=== PATIENT | male | born 1980 | race Caucasian/White ===

== ENCOUNTER 2016-10-24 00:38 | Emergency (ER) | payer OTHER ==
[~2016-10-24] VITALS: Ht 172.7 cm; Wt 96.7 kg
[~2016-10-24 00:38] MED LIST: BACT800T5 PO; CEPH500C3 PO
[2016-10-24 00:44] VITALS: BP 162/114; PULSE 105; RESP 12; TEMP 98.4; O2SAT 95
[2016-10-24 01:20] VITALS: BP 163/101; PULSE 88; RESP 16; O2SAT 98
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
[2016-10-24 02:05] LABS: BLOOD, URINE TRACE (NEG); GLUCOSE,URINE NEG (NEG); KETONE, URINE NEG (NEG); NITRITE,URINE NEG (NEG); PH, URINE 5.5 (5.0-8.5)
[2016-10-24 02:12] LABS: RBC, URINE 0-3 /hpf (0-3); SQUAMOUS EPITHELIAL CELL URINE 0-5 /hpf (0-5); URINE COLOR YELLOW (YELLW/STRAW); WBC, URINE 0-2 /hpf (0-5)
[2016-10-24 02:13] LABS: COMMENT (UR) CULT NOT INDICATED; CULTURE IF INDICATED CULT NOT INDICATED
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
[2016-10-24 02:45] VITALS: BP 148/98; PULSE 85; RESP 16; O2SAT 97
[2016-10-24] MEDS ORDERED: ROBA750T PO (02:51)
[2016-10-24] MEDS ORDERED: IBUP800T23 PO (02:51)
[2016-10-24] MEDS ORDERED: ACETAMINOPHEN/HYDROcodone 325 MG/5 MG TAB PO ONE (03:00)
[2016-10-24] MEDS ORDERED: ORPHENADRINE INJ 60 MG/2 ML AMP IM ONE (03:00)
[2016-10-24] MEDS ORDERED: KETOROLAC TROMETHAMINE 60 MG/2 ML (IM) VIAL IM ONE (03:00)
[2016-10-24] MEDS ORDERED: TRAM50TA PO (03:01)
== END 2016-10-24 03:37 | disposition home or self-care (01) ==
LOC: PHED 00:38
DX: M54.6 Pain in thoracic spine (principal); M54.5 Low back pain; S30.1XXA Contusion of abdominal wall, initial encounter; S80.212A Abrasion, left knee, initial encounter; V19.40XA Pedal cycle driver injured in collision with unspecified motor vehicles in traffic accident, initial encounter; Y93.55 Activity, bike riding; F17.210 Nicotine dependence, cigarettes, uncomplicated
CPT/HCPCS: 72040; 72072; 72100; 81001; 96372; 99284; J1885; J2360